=== PATIENT | female | born 1990 | race Caucasian/White ===

== ENCOUNTER → 2019-09-30 09:38 | Outpatient (BNVA) | payer OTHER, SELFPAY | PROVIDERS: Visit Provider Psychiatry & Neurology Psychiatry | DX: Z03.89 Encounter for observation for other suspected diseases and conditions ruled out; F43.10 Post-traumatic stress disorder, unspecified; F33.1 Major depressive disorder, recurrent, moderate; F41.0 Panic disorder [episodic paroxysmal anxiety]; F41.1 Generalized anxiety disorder | CPT/HCPCS: 80053; 80061; 84443; 85025 ==

== ENCOUNTER → 2020-01-09 15:25 | Outpatient (BNVA) | payer OTHER, SELFPAY | PROVIDERS: Visit Provider Psychiatry & Neurology Psychiatry | DX: Z03.89 Encounter for observation for other suspected diseases and conditions ruled out (principal); Z79.899 Other long term (current) drug therapy | CPT/HCPCS: 80048; 84443; 85025 ==

== ENCOUNTER 2025-01-15 11:39 | Observation (INO) | payer SELFPAY ==
[2025-01-15] VITALS (8 sets, daily range): BP systolic 99–133; BP diastolic 48–83; PULSE 72–102; RESP 16–18; TEMP 36.8–36.9; O2SAT 92–98
--- OUTSIDE RECORDS SUMMARY | 2025-01-15 11:44 | XMS_ITS | Clinical Summary ---
Author Organization [facility] Address [address] [place]: Epic Prelude ADT [place] [address] Care Team Providers Care Terminologist Name Role Phone Unavailable Primary Care Provider Unavailabl e Allergies Active Allergy Reactions Criticality Noted Date Comments Pertussis Vaccines Unknown 03/26/2013 Unclassified Drug Swelling Low 03/26/2013 Medications No known medications Active Problems Problem Noted Date Diagnosed Date Chronic pain of toe of right foot 11/10/2023 Encounters Date Type Department Care Team Description 11/05/2024 External Device Data [facility] Provider, Abstract 10/30/2024 External Device Data [facility] Provider, Abstract 10/29/2024 External Device Data [facility] Provider, Abstract 10/29/2024 External Device Data [facility] Provider, Abstract 10/22/2024 External Device Data [facility] Provider, Abstract from Last 3 Months Immunizations Immunization Administration Dates Next Due (TENIVAC)(7 YRS UP) TETANUS AND DIPHTHERIA TOXOIDS, ADSORBED (5 LF OF TETANUS TOXOID AND 2 LF OF DIPHTHERIA TOXOID), 0.5ML (PF), IM 03/26/2013 Social History Tobacco Use Types Packs/Day Years Used Date Smoking Tobacco: Every Day Cigarettes Smokeless Tobacco: Never Tobacco Cessation:Ready to Q uit: Not Asked; Counseling Given: Not Answered Alcohol Use Standard Drinks/Week Comments Yes 0 (1 standard drink = 0.6 oz pur e alcohol) occasionally Feeling Safe Answer Date Recorded Are you in a relationship wi th someone who hurts you emotionally and/or physically? 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 Gender Identity Not on file Sexual Orientation Not on file Last Filed Vital Signs Vital Sign Reading Time Taken Comments Blood Pressure 103/71 11/10/2023 4:50 PM CDT Pulse 105 11/10/2023 4:50 PM CDT Temperature 37.1 C (98.7 F) 11/10/2023 4:50 PM CDT Respiratory Rate 12 11/10/2023 4:50 PM CDT Oxygen Saturation 99% 11/10/2023 4:00 PM CDT Inhaled Oxygen Concentration - - Weight 45.6 kg (100 lb 9.6 oz) 11/10/2023 3:53 P M CDT Height 157.5 cm (5' 2 ) 11/10/2023 3:53 PM CDT Body Mass Index 18.4 11/10/2023 3:53 PM CDT Plan of Treatment Health Maintenance Due Date Last Done Comments HEPATITIS B VACCINES (1 of 3 - 19+ 3-dose series) 04/06 HPV/Cotest (21-29) 2011 DTAP/TDAP/TD VACCINES (1 - Tdap) 03/27/2013 03/26/19 14 HPV VACCINES (1 - 3-dose SCDM series) 2017 CERVICAL CANCER SCREENING 2020 HPV/Cotest (30-65) 2020 PAP SMEAR 2020 INFLUENZA VACCINE (#1) 2024
--- NOTE | 2025-01-15 11:57 | W.ED.NAVMDI ---
HPI - Nausea/Vomiting/Diarrhea General: Chief complaint: Nausea/Vomiting/Diarrhea Stated complaint: n/v/f, dehydration Time Seen by Provider: 01/15/25 11:56 History of Present Illness: 34-year-old female presents to the emergency room with complaints of nausea vomiting abdominal cramping no no hematemesis no coffee-ground emesis. No dysuria urgency or frequency no fever sweats or chills said intermittent nausea and vomiting. Previously had has not cholecystectomy. Associated symtoms: Denies chest pain or dysuria Related Data Previous Rx's ?Medication ?Instructions ?Recorded citalopram 20 mg tablet 20 mg PO DAILY 30 days #30 tabs 11/18/21 trazodone 50 mg tablet 50 mg PO .qhs 30 days #30 tabs 11/18/21 Allergies Allergy/AdvReac Type Severity Reaction Status Date / Time ethinyl estradiol (From Allergy NA Verified 11/18/21 08:44 Ortho Tri-Cyclen (28)) norgestimate (From Ortho Allergy NA Verified 11/18/21 08:44 Tri-Cyclen (28)) pertussis vaccine,adsorbed Allergy NA Verified 11/18/21 08:44 Review of Systems Const: Denies: fever(s) or chills Card: Denies: chest pain Resp: Denies: dyspnea GI: Denies: abdominal pain : Denies: dysuria, urinary frequency or urinary urgency Musc: Denies: neck pain or back pain Skin/Breast: Denies: rash PFS ED PFSH: Medical History (Updated 12/09/22 @ 08:52 by Shama Riley LPN) Encounter for observation for other suspected diseases and conditions ruled out Generalized anxiety disorder Panic MDD (major depressive disorder) PTSD (post-traumatic stress disorder) Encounter for observation for other suspected diseases and conditions ruled out Social History (Updated 06/08/20 @ 14:03 by Sienna Nunez LPN) Smoking and tobacco/nicotine status: current every day tobacco/nicotine user cigarettes Packs smoked per day: 0.5 Years cigarettes smoked: 15 Quit status (tobacco/nicotine): considering quitting Second hand smoke exposure: Yes Alcohol intake: current Substance/Drug Use: unknown Current gender identity: Female Physical Exam Const: COMMON NORMALS: no acute distress GENERAL APPEARANCE: cooperative and comfortable ORIENTATION/CONSCIOUSNESS: Yes awake, Yes oriented to person, Yes oriented to place and Yes oriented to time HENMT: COMMON NORMALS: normocephalic, atraumatic and hearing grossly normal bilaterally HEAD & SCALP: normocephalic and atraumatic Resp: COMMON NORMALS: normal respiratory effort, No retractions, No use of accessory muscles and clear to auscultation bilaterally AUSCULTATION: clear to auscultation bilaterally Cardio: COMMON NORMALS: regular rate, regular rhythm and No murmurs present (Cardio) RATE: regular rate RHYTHM: regular rhythm GI: COMMON NORMALS: Soft to palpation and No hepatosplenomegaly present AUSCULTATION: Yes normoactive bowel sounds PALPATION: Yes Soft to palpation, No Tenderness to palpation present (GI), No Guarding due to palpation present (GI) and Yes No hepatosplenomegaly present Extremity: COMMON NORMALS: normal to inspection, capillary refill normal, no clubbing, cyanosis or edema, no calf tenderness and no pedal edema Neuro: SENSORIUM/ORIENTATION: Yes oriented to person, Yes oriented to place and Yes oriented to time Skin: COMMON NORMALS: no rashes or lesions noted GENERAL SKIN EXAM: no rashes or lesions noted Course Vital Signs: Vital signs: Vital Signs Temperature 98.5 F 01/15/25 11:47 Pulse Rate 99 01/15/25 11:47 Respiratory Rate 18 01/15/25 11:47 Blood Pressure 125/79 01/15/25 11:47 Pulse Oximetry 98 01/15/25 11:47 Oxygen Delivery Me thod Room Air 01/15/25 11:47 Discharge Plan Discharge Condition: Stable Prescriptions: No Action citalopram 20 mg tablet 20 mg PO DAILY 30 Days Qty: 30 3RF trazodone 50 mg tablet 50 mg PO .qhs 30 Days Qty: 30 3RF Print Language: Macedonian Coding Level of Care Code ED Blood Bank Attendant for Lien Bolivar
[2025-01-15 12:26] LABS: Hematocrit 38.8 % (36-47); Hemoglobin 13.20 g/dL (11.27-16.99); Mean Corpuscular HGB Conc 34.0 g/dL (30-55); Mean Corpuscular Hemoglobin 29.6 pg (27-33); Mean Corpuscular Volume 87.0 fl (85-98); Nucleated Red Blood Cells % 0 %; Platelet Count 276 10^3/cmm (157-399); Red Blood Count 4.46 10^6/uL (3.85-5.65); White Blood Count 9.30 10^3/uL (3.29-11.43)
[2025-01-15] MEDS: ondansetron 2 mg/ML SDV 2 mL 4 MG IVP ×2 (12:27→20:11)
[2025-01-15 12:44] LABS: Alanine Aminotransferase 10 U/L (0-33); Albumin Level 4.1 g/dL (3.5-5.2); Alkaline Phosphatase 99 U/L (35-105); Anion Gap 20.0 (5-19); Aspartate Amino Transferase 15 U/L (0-32); Blood Urea Nitrogen 4 mg/dL (6-20); Calcium 8.9 mg/dL (8.5-10.5); Carbon Dioxide 27 mmol/L (22-29); Chloride 89 mmol/L (98-107); Globulin 3.3 g/dL (1.3-4.6); Glucose 95 mg/dL (65-115); Lipase 11 U/L (13-60); Osmolality Calculated 275 mOsm/kg (285-295); Sodium 134 mmol/L (136-145); Total Protein 7.4 g/dL (6.6-8.7)
[2025-01-15 12:48] LABS: Potassium 2.0 mmol/L (3.5-5.1)
[2025-01-15 12:51] LABS: Add Urine Microscopic? YES
[2025-01-15 12:55] LABS: HCG, Serum Qual Negative (Negative)
[2025-01-15 13:17] LABS: Magnesium 1.8 mg/dL (1.7-2.3)
[2025-01-15] MEDS: lidocaine 1% 5 ML in potassium chloride premix 100 ML 52.5 ML IV ×2 (13:30→15:35)
--- NOTE | 2025-01-15 13:41 | CT_ITS ---
WS: [id number] CT ABDOMEN AND PELVIS NONCONTRAST HISTORY: flank pain TECHNIQUE: Imaging performed through the abdomen and pelvis. Coronal and sagittal reformats are submitted. All CT scans at [facility] use at least one of these dose optimization techniques: automated exposure control; mA and/or kV adjustment per patient size (includes targeted exams where dose is matched to clinical indication); or iterative reconstruction. DLP: 319.93 mGy.cm COMPARISON: 08/20/2011. Lower thorax: Significant breathing motion artifact at the lung bases. No large consolidations. Heart size is normal. Liver: Normal size liver. Focal hepatic steatosis along the falciform ligament. Gallbladder: Prior cholecystectomy. Pancreas: Normal size and attenuation. Normal pancreatic duct. No pancreatitis or mass. Spleen: Normal. Adrenal glands: Normal. No mass. Right kidney: Normal size kidney with no mass or hydronephrosis. Left kidney: Normal size kidney with no mass or hydronephrosis. Aorta: Normal abdominal aorta, no aneurysm or atherosclerosis. Small central mesenteric lymph nodes. No adenopathy. GI tract: No obstruction. Normal appendix. Abdominal wall: Small umbilical hernia contains fat only. Pelvis: Urinary bladder is not distended. RIGHT adnexal low-attenuation mass measures 4.1 x 3.8 cm. This is most likely an ovarian cyst. Uterus is midline. No free fluid in the pelvis. Osseous structures: Unremarkable. CT/CT kidney stone [id number] IMPRESSION: 1. No renal obstruction or ureteral calcifications. 2. Normal appendix. 3. RIGHT ovarian cyst 4.1 x 3.8 cm. This can be further evaluated by transvagi nal pelvic ultrasound. 4. No free fluid or adenopathy. 5. Prior cholecystectomy.
--- NOTE | 2025-01-15 15:28 | PM.HP ---
Providers/Chief Complaint Admitting Physician: Rickey Harris MD Chief Complaint: n/v/f, dehydration History of Present Illness Jennifer Fatima is a 34 year old female with prior medical history of major depressive disorder, anxiety, PTSD, and cholecystectomy presenting with complaints of N/V/D. Patient reports that ever since the of her first child (2007), she has had complications with electrolyte imbalance and dehydration. She had 2 more children after this - 2017. Her current episode started on 01/12/25 and included flu-like symptoms - headache, fever, sweating, chills. She has had nausea and vomiting, abdominal cramping, and parasthesias to all extremities and face. The parasthesias normally alert her to low potassium. She has also had episodes of diarrhea. Denies near-syncope or loss of conciousness. Endorses occasional alcohol use and 1/2 pack cigarettes per day. She came to [facility] ED to be evaluated. 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 She confirms that there are no home meds to note. She only takes tylenol. In the ED, BP 125/79, HR 99, RR 18, T98.5, O2 98. WBC 9.30, Hgb 13.2, PLT 276. Sodium 134, potassium 2.0, BUN 4, creatinine 0.5, lipase 11. Magnesium 1.8. Urinalysis dark yellow, cloudy, WBC 10?15, urine bacteria 2+, 1+ mucus. Ceftriaxone started in the ED. Review of Systems General: Reports: 10 or more systems reviewed and unremarkable except in HPI and below Medications/Allergies Home Medications ?Medication ?Instructions ?Recorded ?Confirmed ?Last Taken ?Type No Known Home Medications 01/15/25 01/15/25 Unknown History Allergies Allergy/AdvReac Type Severity Reaction Status Date / Time ethinyl estradiol (From Allergy NA Verified 11/18/21 08:44 Ortho Tri-Cyclen (28)) norgestimate (From Ortho Allergy NA Verified 11/18/21 08:44 Tri-Cyclen (28)) pertussis vaccine,adsorbed Allergy NA Verified 11/18/21 08:44 PFSH Acute PFSH: Medical History (Updated 01/15/25 @ 15:33 by She Henao, OUTDOOR GUIDE, VEHICLE MAINTENANCE TECHNICIAN) Encounter for observation for other suspected diseases and conditions ruled out Generalized anxiety disorder Panic MDD (major depressive disorder) PTSD (post-traumatic stress disorder) Encounter for observation for other suspected diseases and conditions ruled out Social History (Updated 06/08/20 @ 14:03 by Sienna Nunez LPN) Smoking and tobacco/nicotine status: current every day tobacco/nicotine user cigarettes Packs smoked per day: 0.5 Years cigarettes smoked: 15 Quit status (tobacco/nicotine): considering quitting Second hand smoke exposure: Yes Alcohol intake: current Substance/Drug Use: unknown Current gender identity: Female Vitals/I&O/Wt Last Vital Signs Temp 98.4 F 01/15/25 15:00 Pulse 90 01/15/25 15:21 Resp 18 01/15/25 15:00 BP 116/78 01/15/25 15:21 Pulse Ox 97 01/15/25 15:21 O2 Del Method Room Air 01/15/25 15:00 Weight last 48 hrs Weight 51.256 kg Physical Exam Const: COMMON NORMALS: patient oriented x3 HENMT: COMMON NORMALS: normocephalic and atraumatic Eye: COMMON NORMALS: Equal, round and reactive pupils present Neck/C-Spine: COMMON NORMALS: full ROM and no lymphadenopathy Lymph: LYMPHATIC: no lymphadenopathy noted Chest: COMMONS NORMALS: normal inspection of the chest Resp: COMMON NORMALS: normal respiratory effort Cardio: COMMON NORMALS: no JVD, regular rate and regular rhythm GI: COMMON NORMALS: Normal to inspection, nondistended, normoactive bowel sounds present Neuro: COMMON NORMALS: patient oriented x3 and moves all extremities Psych: COMMON NORMALS: mental status grossly normal, Normal thought process present and cooperative Skin: COMMON NORMALS: no rashes or lesions noted Data 01/15/25 12:15 01/15/25 15:37 A&P Assessment and plan 1. Hypokalemia: K+ 2.0, replete Magnesium WNL at 1.8 Telemetry EKG Patient placed in observation status 2. Dehydration: BP 125/79, HR 99 With electrolyte abnormality, hypokalemic at 2.0 Creatinine 0.5, BUN 4 Clear liquid diet I&O, daily weights Replete with fluids -lactated Ringer's continuous Vitamins Telemetry CMP monitoring Bedrest for now, fall risk precautions 3. UTI (urinary tract infection): Urinalysis with reflex to urine culture; dark yellow, cloudy, WBC 10?15, urine bacteria 2+, 1+ mucus I&O Avoid nephrotoxic agents Rocephin Florastor CT abdomen pelvis performed CT kidney stone imaging pending 4. Nausea, vomiting, and diarrhea: Antiemetics Clear liquid diet 5. MDD (major depressive disorder): With anxiety and PTSD-severe trauma Continue home citalopram Has been patient of [facility] health, 2022 6. Nicotine dependence: Cessation education Nicotine patch offered PDMP PDMP Reviewed: Not Reviewed Attestations Medical Necessity Statement*: Continued hospitalization expected to last less than two midnights secondary to dehydration and electrolyte imbalance correction. Diagnoses Hypokalemia E87.6 Dehydration E86.0 UTI (urinary tract infection) N39.0 Nausea, vomiting, and diarrhea R11.2; R19.7 MDD (major depressive disorder) F32.9 Nicotine dependence F17.200
[2025-01-15] MEDS: cefTRIAXone 1,000 mg SDV 1000 MG IVP (15:35)
[2025-01-15 16:05] LABS: Blood Urea Nitrogen 4 mg/dL (6-20); Calcium 8.0 mg/dL (8.5-10.5); Carbon Dioxide 26 mmol/L (22-29); Chloride 94 mmol/L (98-107); Ferritin 280 ng/mL (15-150); Glucose 87 mg/dL (65-115); Osmolality Calculated 276 mOsm/kg (285-295); Sodium 135 mmol/L (136-145)
[2025-01-15 16:13] LABS: Anion Gap 17.5 (5-19)
[2025-01-15 16:16] LABS: Potassium 2.5 mmol/L (3.5-5.1)
[2025-01-15 18:51] LABS: Potassium 2.3 mmol/L (3.5-5.1)
[2025-01-15] MEDS: potassium chloride oral liq 20 mEq/15 mL UDC 40 MEQ PO (19:53)
[2025-01-15] MEDS: magnesium sulfate premix 2 GM/50 ML PIGGYBACK IV (19:53)
[2025-01-15] MEDS: potassium chloride premix 100 ML 50 MEQ IV ×2 (19:53→21:59)
[2025-01-16] VITALS (8 sets, daily range): BP systolic 104–128; BP diastolic 68–81; PULSE 66–80; RESP 16–17; TEMP 36.2–36.7; O2SAT 98–100
[2025-01-16 01:40] LABS: Magnesium 2.3 mg/dL (1.7-2.3); Potassium 3.2 mmol/L (3.5-5.1)
[2025-01-16] MEDS: ondansetron 2 mg/ML SDV 2 mL 4 MG IVP (02:14)
[2025-01-16] MEDS: potassium chloride oral liq 20 mEq/15 mL UDC 40 MEQ PO (02:14)
--- OUTSIDE RECORDS SUMMARY | 2025-01-16 05:43 | XMS_ITS | Clinical Summary ---
Author Organization [facility] Address [address] 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
[2025-01-16] MEDS: multivitamin therapeutic Tablet 1 TAB PO (08:23)
[2025-01-16 09:12] LABS: Hematocrit 36.9 % (36-47); Hemoglobin 12.30 g/dL (11.27-16.99); Mean Corpuscular HGB Conc 33.3 g/dL (30-55); Mean Corpuscular Hemoglobin 30.5 pg (27-33); Mean Corpuscular Volume 91.6 fl (85-98); Nucleated Red Blood Cells % 0 %; Platelet Count 270 10^3/cmm (157-399); Red Blood Count 4.03 10^6/uL (3.85-5.65); White Blood Count 4.31 10^3/uL (3.29-11.43)
--- NOTE | 2025-01-16 09:15 | P.DS_ITS ---
Discharge Providers Date of Admission: 01/15/25 14:42 Date of Discharge: January 16, 2025 Attending Provider at Admission: Rickey Harris MD Attending Provider at Discharge: Dulce Pena NP Diagnoses at Discharge Discharge Diagnosis 1. Hypokalemia: 2. Dehydration: 3. UTI (urinary tract infection): 4. Nausea, vomiting, and diarrhea: 5. Moderate episode of recurrent major depressive disorder: 6. Nicotine dependence: Reason for Visit Reason for Visit: n/v/f, dehydration Brief History: Admission: Jennifer Fatima is a 34 year old female with prior medical history of major depressive disorder, anxiety, PTSD, and cholecystectomy presenting with complaints of N/V/D. Patient reports that ever since the of her first child (2007), she has had complications with electrolyte imbalance and dehydration. She had 2 more children after this - 2017. Her current episode started on 01/12/25 and included flu-like symptoms - headache, fever, sweating, chills. She has had nausea and vomiting, abdominal cramping, and parasthesias to all extremities and face. The parasthesias normally alert her to low potassium. She has also had episodes of diarrhea. Denies near-syncope or loss of conciousness. Endorses occasional alcohol use and 1/2 pack cigarettes per day. She came to [facility] ED to be evaluated. 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 She confirms that there are no home meds to note. She only takes tylenol. In the ED, BP 125/79, HR 99, RR 18, T98.5, O2 98. WBC 9.30, Hgb 13.2, PLT 276. Sodium 134, potassium 2.0, BUN 4, creatinine 0.5, lipase 11. Magnesium 1.8. Urinalysis dark yellow, cloudy, WBC 10?15, urine bacteria 2+, 1+ mucus. Ceftriaxone started in the ED. Hospital Course Hospital Course Interventions: 1. Hypokalemia: K+ 2.0, replete Magnesium WNL at 1.8 Telemetry EKG Patient placed in observation status 2. Dehydration: BP 125/79, HR 99 With electrolyte abnormality, hypokalemic at 2.0 Creatinine 0.5, BUN 4 Clear liquid diet I&O, daily weights Replete with fluids -lactated Ringer's continuous Vitamins Telemetry CMP monitoring Bedrest for now, fall risk precautions 3. UTI (urinary tract infection): Urinalysis with reflex to urine culture; dark yellow, cloudy, WBC 10?15, urine bacteria 2+, 1+ mucus I&O Avoid nephrotoxic agents Rocephin Florastor CT abdomen pelvis performed CT kidney stone imaging pending 4. Nausea, vomiting, and diarrhea: Antiemetics Clear liquid diet 5. MDD (major depressive disorder): With anxiety and PTSD-severe trauma Continue home citalopram Has been patient of [facility] health, 2022 6. Nicotine dependence: Cessation education Nicotine patch offered Patient doing very well overall, was able to tolerate diet, nausea and vomiting subsided. CT abdomen pelvis with no renal obstruction or ureteral calcifications, normal appendix, patient does have a right ovarian cyst which can be further evaluated outpatient with gynecology, she had no free fluid or adenopathy, and has prior cholecystectomy. Advised patient to continue good oral hydration with electrolyte supplementation. Discharging potassium 3.6. She is prescribed continued potassium and Zofran as needed. Patient is advised to follow-up with her primary care provider in 1 to 3 days, gynecology at the next available appointment. All questions and concerns addressed with patient prior to discharge. Physical Exam Const: COMMON NORMALS: patient oriented x3 HENMT: COMMON NORMALS: normocephalic and atraumatic HEAD & SCALP: normocephalic and atraumatic Eye: COMMON NORMALS: Equal, round and reactive pupils present PUPIL: Yes Equal, round and reactive pupils present Neck/C-Spine: COMMON NORMALS: full ROM, no lymphadenopathy and no JVD Lymph: LYMPHATIC: no lymphadenopathy noted Chest: COMMONS NORMALS: normal inspection of the chest Resp: COMMON NORMALS: normal respiratory effort Cardio: COMMON NORMALS: no JVD, regular rate and regular rhythm RATE: regular rate RHYTHM: regular rhythm GI: COMMON NORMALS: Normal to inspection, nondistended, normoactive bowel sounds present Neuro: COMMON NORMALS: patient oriented x3 and moves all extremities Psych: COMMON NORMALS: mental status grossly normal, Normal thought process present and cooperative THOUGHT PROCESS: Normal thought process present Skin: COMMON NORMALS: no rashes or lesions noted GENERAL SKIN EXAM: no rashes or lesions noted Discharge Data Studies Completed and Pending Completed Studies During Hospitalization Category Date Time Status CT kidney stone [id number] Stat Cat Scan 01/15/25 13:41 Completed Pending at discharge Category Date Time Status CMP [Comprehensive Metabolic Panel] Timed Lab 01/16/25 08:57 Received Complete Blood Count w/Auto AM LABS Lab 01/16/25 08:57 Received Thyroid Stimulating Hormone AM LABS Lab 01/16/25 08:57 Received Urine Culture Stat Lab 01/15/25 12:04 Received Radiology Impressions Abdomen/Pelvis CT 01/15/25 13:41 IMPRESSION: 1. No renal obstruction or ureteral calcifications. 2. Normal appendix. 3. RIGHT ovarian cyst 4.1 x 3.8 cm. This can be further evaluated by transvaginal pelvic ultrasound. 4. No free fluid or adenopathy. 5. Prior cholecystectomy. Laboratory Results WBC 9.30 10^3/uL (3.29-11.43) 01/15/25 12:15 RBC 4.46 10^6/uL (3.85-5.65) 01/15/25 12:15 Hgb 13.20 g/dL (11.27-16.99) 01/15/25 12:15 Hct 38.8 % (36-47) 01/15/25 12:15 MCV 87.0 fl (85-98) 01/15/25 12:15 MCH 29.6 pg (27-33) 01/15/25 12:15 MCHC 34.0 g/dL (30-55) 01/15/25 12:15 RDW 16.9 % (12.1-15.1) H 01/15/25 12:15 Plt Count 276 10^3/cmm (157-399) 01/15/25 12:15 MPV 9.5 fL (7.4-10.4) 01/15/25 12:15 Neut % (Auto) 75.8 % 01/15/25 12:15 Lymph % (Auto) 14.4 % 01/15/25 12:15 Cherry % (Auto) 9.1 % 01/15/25 12:15 Eos % (Auto) 0.1 % 01/15/25 12:15 Baso % (Auto) 0.3 % 01/15/25 12:15 Neut # (Auto) 7.04 10^3/uL (1.8-7.7) 01/15/25 12:15 Lymph # (Auto) 1.3 10^3/uL (0.8-4.8) 01/15/25 12:15 Cherry # (Auto) 0.9 10^3/uL (0.2-0.9) 01/15/25 12:15 Eos # (Auto) 0.0 10^3/uL (0.0-0.8) 01/15/25 12:15 Baso # (Auto) 0.0 10^3/uL (0.0-0.1) 01/15/25 12:15 Nucleated RBC % (auto) 0 % 01/15/25 12:15 Nucleated RBCs # 0.0 /100WBC 01/15/25 12:15 Sodium 135 mmol/L (136-145) L 01/15/25 15:37 Potassium 3.2 mmol/L (3.5-5.1) L 01/16/25 01:01 Chloride 94 mmol/L (98-107) L 01/15/25 15:37 Carbon Dioxide 26 mmol/L (22-29) 01/15/25 15:37 Anion Gap 17.5 (5-19) 01/15/25 15:37 BUN 4 mg/dL (6-20) L 01/15/25 15:37 Creatinine 0.5 mg/dL (0.5-0.9) 01/15/25 15:37 GFR Calculation 141.2 mL/min (90-130) H 01/15/25 15:37 Glucose 87 mg/dL (65-115) 01/15/25 15:37 Calculated Osmolality 276 mOsm/kg (285-295) L 01/15/25 15:37 Calcium 8.0 mg/dL (8.5-10.5) L 01/15/25 15:37 Phosphorus 1.9 mg/dL (2.5-4.5) L 01/15/25 15:37 Magnesium 2.3 mg/dL (1.7-2.3) 01/16/25 01:01 Ferritin 280 ng/mL (15-150) H 01/15/25 15:37 Total Bilirubin 0.7 mg/dL (0.15-1.2) 01/15/25 12:15 AST 15 U/L (0-32) 01/15/25 12:15 ALT 10 U/L (0-33) 01/15/25 12:15 Alkaline Phosphatase 99 U/L (35-105) 01/15/25 12:15 Total Protein 7.4 g/dL (6.6-8.7) 01/15/25 12:15 Albumin 4.1 g/dL (3.5-5.2) 01/15/25 12:15 Globulin 3.3 g/dL (1.3-4.6) 01/15/25 12:15 Lipase 11 U/L (13-60) L 01/15/25 12:15 HCG, Qual Negative (Negative) 01/15/25 12:15 Urine Color Dark yellow (Yellow) A 01/15/25 12:04 Urine Appearance Cloudy (CLEAR) A 01/15/25 12:04 Urine pH (5-7) 01/15/25 12:04 Ur Specific [place] Not Reportable 01/15/25 12:04 Urine Protein Not Reportable 01/15/25 12:04 Urine Glucose (UA) Not Reportable 01/15/25 12:04 Urine Ketones Not Reportable 01/15/25 12:04 Urine Blood Not Reportable 01/15/25 12:04 Urine Nitrate Not Reportable 01/15/25 12:04 Urine Bilirubin Not Reportable 01/15/25 12:04 Urine Urobilinogen Not Reportable 01/15/25 12:04 Ur Leukocyte Esterase Not Reportable 01/15/25 12:04 Urine RBC 0-4 /hpf (0-2) H 01/15/25 12:04 Urine WBC 10-15 /hpf (0-5) H 01/15/25 12:04 Ur Squamous Epith Cells 5-10 /hpf (0-5) H 01/15/25 12:04 Amorphous Sediment Not Reportable 01/15/25 12:04 Urine Bacteria 2+ /hpf (NONE) H 01/15/25 12:04 Urine Mucus 1+ /hpf 01/15/25 12:04 Vitals Last Vital Signs Temp 97.8 F 01/16/25 08:25 Pulse 77 01/16/25 08:25 Resp 17 01/16/25 08:25 BP 104/69 01/16/25 08:25 Pulse Ox 99 01/16/25 08:25 O2 Del Method Room Air 01/16/25 04:00 Discharge Plan Discharge Patient Disposition: Home Condition: Stable Prescriptions: New pantoprazole 40 mg Tablet,Delayed Release (Dr/Ec) 40 mg PO DAILY 30 Days Qty: 30 0RF thiamine mononitrate (vit B1) [Vitamin B-1 (mononitrate)] 100 mg Tablet 50 mg PO DAILY 30 Days Qty: 30 0RF ondansetron 4 mg tablet,disintegrating 4 mg PO Q8H PRN (Reason: nausea and vomiting) 5 Days Qty: 20 0RF potassium chloride 20 mEq/15 mL liquid 10 meq PO DAILY 30 Days Qty: 1200 0RF cefuroxime axetil 500 mg tablet 500 mg PO BID 7 Days Qty: 14 0RF Discharge Order = DC NOW: Discharge Order (Routine); Ordered 01/16/25 Ordered By: Dulce Pena Patient Instructions: Cefuroxime (By mouth), Potassium Chloride (By mouth), Thiamine (By mouth), Hypokalemia (GEN), Opioid Safety, Patient Portal & Taras Instructions Activity Restrictions/Additional Instructions: Please get established with a primary care provider of your choice. Discharge Attestations Time Spent in Discharge Care*: greater than 30 min Quality Metrics Clinical Quality Measures [ No reported AMI, CVA or VTE this stay] Coding Level of Care Code 22229 Diagnoses Hypokalemia E87.6 Dehydration E86.0 UTI (urinary tract infection) N39.0 Nausea, vomiting, and diarrhea R11.2; R19.7 Moderate episode of recurrent major depressive disorder F33.1 Active/Remission status: currently active Major depression episode severity: moderate Major depression recurrence: recurrent Nicotine dependence F17.200
[2025-01-16 09:35] LABS: Alanine Aminotransferase 8 U/L (0-33); Albumin Level 3.2 g/dL (3.5-5.2); Alkaline Phosphatase 76 U/L (35-105); Anion Gap 13.0 (5-19); Aspartate Amino Transferase 15 U/L (0-32); Blood Urea Nitrogen 2 mg/dL (6-20); Calcium 7.5 mg/dL (8.5-10.5); Carbon Dioxide 23 mmol/L (22-29); Chloride 104 mmol/L (98-107); Globulin 2.5 g/dL (1.3-4.6); Glucose 107 mg/dL (65-115); Osmolality Calculated 281 mOsm/kg (285-295); Potassium 3.0 mmol/L (3.5-5.1); Sodium 137 mmol/L (136-145); Total Protein 5.7 g/dL (6.6-8.7)
[2025-01-16 09:43] LABS: Thyroid Stimulating Hormone 1.18 uIU/mL (0.27-4.20)
--- NOTE | 2025-01-16 10:03 | PC.CHAP ---
Pastoral Care Encounter/Spiritual Assessment Type of Contact [] Declined ironworker apprentice shop visit [] Patient/Family/Request visit [] Outpatient visit [] Follow-up visit [] Physician referral [] Code/Alert [x] Routine visit [] Staff referral [] Actively dying [] Patient sleeping [] Family support [] [] Out of room [] Palliative care [] [] Receiving care in room [] Pre-surgical visit [] Trauma [] Long length of stay [] ICU visit [] Other: Relational/Emotional Strength [x] Patient feels connected with others/family/visitors/staff [] Distress [] Loneliness/isolation [] Abandonment Spirituality of Patient [x] Person of Iliana [] Attends Zoroastrian of their [place]iana [x] Believes in Prayer [] Reads Bible or Cheondoism materials [] There are Spiritual issues to be addressed Media Theorist And Author Of Interventions [x] Prayer [x] Active listening [] Non-anxious presence [x] Spiritual/emotional support [] Crisis/trauma care [] Spiritual counseling [] Bereavement support [] Provided bereavement packet [] Provided Bible/devotional materials [] Provided toy/stuffed animal, coloring book to patient or family member [] Provided Communion [] Anointing/[place] [] Salvation [x] Completed spiritual assessment [] Other: Impact on Illness or Injury [] Angry [] Fearful [] Anxious [] Often cries [] Exhaustion [] Unable to work [] Unable to attend islam [] Unable to walk/stand [] Unable to read [] Unable to drive [] Unable to eat/drink [] Unable to sleep [] Unable to be with family [] Patient intubated [] Other: Summary Time spent with patient 5 min
[2025-01-16] MEDS: lidocaine 1% 5 ML in potassium chloride premix 100 ML 52.5 ML IV ×3 (10:35→14:55)
--- NOTE | 2025-01-16 10:48 | PC.NURSE ---
Patient does not have a primary care provider and requested that we not set one up for her.
[2025-01-16] MEDS: cefTRIAXone 1,000 mg SDV 1000 MG IVP (17:00)
[2025-01-16 18:53] LABS: Potassium 3.6 mmol/L (3.5-5.1)
== END 2025-01-16 19:01 | disposition home or self-care (01) ==
LOC: ER 12:00 → MEDSURG 17:03
PROVIDERS: Clinical Nurse Specialist Acute Care; Family Medicine; Admitting Provider Family Medicine; Emergency Provider Family Medicine; Visit Provider Registered Nurse
DX: R11.2 Nausea with vomiting, unspecified (principal); R19.7 Diarrhea, unspecified; E87.6 Hypokalemia; E86.0 Dehydration; N39.0 Urinary tract infection, site not specified; F33.1 Major depressive disorder, recurrent, moderate; F17.200 Nicotine dependence, unspecified, uncomplicated; F41.9 Anxiety disorder, unspecified; F43.10 Post-traumatic stress disorder, unspecified; F17.210 Nicotine dependence, cigarettes, uncomplicated
CPT/HCPCS: 36415; 74176; 80048; 80053; 81001; 82728; 83690; 83735; 84100; 84132; 84443; 84703; 85025; 87077; 87086; 87186; G0378; J0696; J2405; J3475; J3480; J7030; J9999

== ENCOUNTER 2025-03-03 12:26 | Emergency (ER) | payer SELFPAY ==
--- OUTSIDE RECORDS SUMMARY | 2025-03-03 12:31 | XMS_ITS | Clinical Summary ---
Author Organization [facility] Address [address] Lisa: Epic Prelude ADT [place] [id number] Care Team Providers Care Protective Services Officer Name Role Phone Unavailable Primary Care Provider Unavailabl e Allergies Active Allergy Reactions Criticality Noted Date Comments Pertussis Vaccines Unknown 03/26/2013 Unclassified Drug Swelling Low 03/26/2013 Medications No known medications Active Problems Problem Noted Date Diagnosed Date Chronic pain of toe of right foot 11/10/2023 Immunizations Immunization Administration Dates Next Due ([facility])(7 YRS UP) TETANUS AND DIPHTHERIA TOXOIDS, ADSORBED [...] on file Legal Sex Female 1:01 PM [employer]ODUCTION WO[employer]FT[employer] Gender Identity Not on file Sexual Orientation [...] VACCINES (1 - Tdap) 03/27/2013 03/26/19 14 CERVICAL CANCER SCREENING 2020 HPV/Cotest (30-65) 2020 PAP SMEAR 2020 INFLUENZA VACCINE (#1) 2024 HPV VACCINES (No Doses Required) Completed
--- NOTE | 2025-03-03 12:32 | XR_ITS ---
WS: [id number] Portable AP upright chest, 03/03/2025 Clinical Data: sob Comparison: Portable chest, 05/27/2016 Findings: No nodules, masses or effusions are seen. The heart is normal. The pulmonary vascularity is not increased. No pneumonia or pneumothorax is seen. The diaphragms are flattened. There are cholecystectomy clips in the right upper quadrant. XR/XR chest 1V portable [id number] Impression: Hyperinflation.
[2025-03-03 12:34] VITALS: BP 134/91; PULSE 95; TEMP 36.3; O2SAT 99
--- NOTE | 2025-03-03 12:39 | ECG_ITS ---
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 Measurements Intervals [place] Rate: 94 P: 73 NV: 119 QRS: 63 QRSD: 78 T: 46 QT: 371 QTc: 464 Interpretive Statements SINUS RHYTHM WITH SHORT NV INTERVAL MODERATE ST DEPRESSION [0.05+ mV ST DEPRESSION] No previous ECG available for comparison Electronically Signed On 03-06-2025 16:27:51 PHONE BANKER by Sid Atkinson M.D. [email or web address]
[2025-03-03 13:24] LABS: Hematocrit 42.5 % (36-47); Hemoglobin 14.40 g/dL (11.27-16.99); Mean Corpuscular HGB Conc 33.9 g/dL (30-55); Mean Corpuscular Hemoglobin 30.5 pg (27-33); Mean Corpuscular Volume 90.0 fl (85-98); Nucleated Red Blood Cells % 0 %; Platelet Count 426 10^3/cmm (157-399); Red Blood Count 4.72 10^6/uL (3.85-5.65); White Blood Count 11.22 10^3/uL (3.29-11.43)
[2025-03-03 13:38] LABS: HCG, Serum Qual Negative (Negative)
[2025-03-03 13:47] LABS: Alanine Aminotransferase 15 U/L (0-33); Albumin Level 4.9 g/dL (3.5-5.2); Alkaline Phosphatase 108 U/L (35-105); Anion Gap 29.3 (5-19); Aspartate Amino Transferase 31 U/L (0-32); Blood Urea Nitrogen 5 mg/dL (6-20); Calcium 9.1 mg/dL (8.5-10.5); Carbon Dioxide 22 mmol/L (22-29); Chloride 88 mmol/L (98-107); Globulin 2.8 g/dL (1.3-4.6); Glucose 146 mg/dL (65-115); NT Pro B Type Natriuretic Pept < 36 pg/mL (0-125); Osmolality Calculated 282 mOsm/kg (285-295); Potassium 3.3 mmol/L (3.5-5.1); Sodium 136 mmol/L (136-145); Total Protein 7.7 g/dL (6.6-8.7)
--- NOTE | 2025-03-03 13:51 | ED_ITS ---
HPI - General Adult 2 General: Chief complaint: Shortness of Breath/Dyspnea Stated complaint: SOB Time Seen by Provider: 03/03/25 13:38 Source: patient Mode of arrival: ambulatory Limitations: no limitations History of Present Illness: Patient is a 34-year-old female presents to ED today with a complaint of an episode of chest pain and shortness of breath and carpal spasms earlier today. Patient feels like it could have been related to low potassium as she does have a history of chronic hypokalemia. She has had to be admitted to the hospital before due to her potassium being 2.0. She does take oral potassium daily. Patient states upon arrival to the emergency department all of her symptoms have resolved. She has no physical complaints at time of my examination. Onset (ago): hour(s) Location: chest, left, right and upper extremity Radiation: non-radiation Severity: moderate Quality: other (cramping) Pain Consistency: now resolved Relieving factors: none Exacerbating factors: none Associated symptoms: Reports no associated symptoms, chest pain (resolved) and dyspnea (resolved); Deny headache(s), malaise, nausea, rash, palpitations, syncope or vomiting Treatments prior to arrival: none Related Data Previous Rx's ?Medication ?Instructions ?Recorded nitrofurantoin 100 mg PO BID 7 days #14 cap s 03/03/25 monohydrate/macrocrystals 100 mg capsule (Macrobid) Allergies Allergy/AdvReac Type Severity Reaction Status Date / Time ethinyl estradiol (From Allergy NA Verified 03/03/25 12:44 Ortho Tri-Cyclen (28)) norgestimate (From Ortho Allergy NA Verified 03/03/25 12:44 Tri-Cyclen (28)) pertussis vaccine,adsorbed Allergy NA Verified 03/03/25 12:44 Review of Systems 2 Const: Denies: fever(s), chills, body aches, fatigue or malaise Card: Reports: chest pain (resolved); Denies: palpitations, irregular heart rhythm, edema, swelling of feet/ankles, lightheadedness, syncope, pre-syncope, dyspnea on exertion, orthopnea, leg pain with exertion or acrocyanosis Resp: Reports: dyspnea (resolved); Denies: productive cough, non-productive cough, wheezing, pain on inspiration, change in phlegm color or chest congestion GI: Denies: abdominal pain, nausea, vomiting or diarrhea : Denies: flank pain, dysuria or hematuria Musc: Reports: other (carpal spasm-now resolved); Denies: neck pain, back pain, extremity pain, extremity swelling, joint pain, joint swelling or joint redness Skin/Breast: Denies: rash Neuro: Denies: headache(s), numbness in extremities, weakness in extremities, sensory changes or dizziness PFSH ED 2 PFSH: Medical History Encounter for observation for other suspected diseases and conditions ruled out Generalized anxiety disorder Panic MDD (major depressive disorder) PTSD (post-traumatic stress disorder) Encounter for observation for other suspected diseases and conditions ruled out Social History Smoking and tobacco/nicotine status: current every day tobacco/nicotine user cigarettes Packs smoked per day: 0.5 Years cigarettes smoked: 15 Quit status (tobacco/nicotine): considering quitting Second hand smoke exposure: Yes Alcohol intake: current Substance/Drug Use: unknown Current gender identity: Female Physical Exam 2 Const: COMMON NORMALS: no acute distress, average body habitus, patient oriented x3, no limitations, healthy appearing, alert and well nourished G ENERAL APPEARANCE: cooperative ORIENTATION/CONSCIOUSNESS: Yes awake, Yes oriented to person, Yes oriented to place and Yes oriented to time HENMT: COMMON NORMALS: normocephalic and atraumatic HEAD & SCALP: normal to inspection, normocephalic and atraumatic FACE & SINUS: normal facial exam and face symmetric Neck/C-Spine: COMMON NORMALS: full ROM, no lymphadenopathy, supple and no meningeal signs Chest: COMMONS NORMALS: normal inspection of the chest and normal palpation of entire chest wall Resp: COMMON NORMALS: normal respiratory effort and clear to auscultation bilaterally AUSCULTATION: clear to auscultation bilaterally Cardio: COMMON NORMALS: regular rate and regular rhythm RATE: regular rate RHYTHM: regular rhythm GI: COMMON NORMALS: Normal to inspection, nondistended, normoactive bowel sounds present, Soft to palpation, non-tender, No hepatosplenomegaly present and no masses PALPATION: Yes Soft to palpation and Yes No hepatosplenomegaly present : COMMON NORMALS: Yes no CVA tenderness BLADDER/KIDNEY EXAM: Yes no CVA tenderness Back/Pelvis: COMMON NORMALS: no CVA tenderness and thoracic and lumbar spine normal to inspection Extremity: COMMON NORMALS: normal to inspection, full ROM, capillary refill normal, no clubbing, cyanosis or edema, no calf tenderness and no pedal edema GENERAL: Yes normal exam except as noted Neuro: COMMON NORMALS: patient oriented x3, moves all extremities, no focal motor deficits, no sensory deficits noted and gait normal S ENSORIUM/ORIENTATION: Yes alert, Yes oriented to person, Yes oriented to place and Yes oriented to time MENINGEAL SIGNS: Yes no meningeal signs SPEECH: s peech normal GAIT: Yes Normal gait present Skin: COMMON NORMALS: no rashes or lesions noted GENERAL SKIN EXAM: no rashes or lesions noted Course 2 Vital Signs: Vital signs: Vital Signs Temperature 97.3 F L 03/03/25 12:34 Pulse Rate 95 03/03/25 12:34 Blood Pressure 134/91 03/03/25 12:34 Pulse Oximetry 99 03/03/25 12:34 Oxygen Delivery Me thod Room Air 03/03/25 12:34 MDM - General Adult Medical Decision Making Patient is a 34-year-old female here after an episode of chest pain, shortness of breath, and carpal spasms that occurred this morning. Episode lasted approximately 5 minutes. She denies anxiety/hyperventilation although I do suspect this. Patient states when she has had carpal spasms in the past, it has been attributed to hypokalemia. Upon arrival, patient is completely asymptomatic. Her vital signs are normal. EKG performed here is unremarkable. Remainder of workup including CXR, CBC, CMP, UA were performed as well. CBC is unremarkable. Chemistry showing mild hypokalemia 3.3. She was given an oral dose here. Her magnesium is normal. Elevated anion gap with normal bicarb. Nothing to suggest ketoacidosis, lactic acidosis, starvation/dehydration, no alcohol use/ingestion history, etc. She was given IV fluids here. UA suspicious for infection-no symptoms but reportedly does have a history of frequent UTIs. Will culture/place on abx. Return precautions discussed. Otherwise will have her follow up with PCP later this week. Medical Records I reviewed the patient's medical records. Lab Data I reviewed the patient's lab results. 03/03/25 12:10 03/03/25 12:10 Radiology Impressions Chest X-Ray 03/03/25 12:32 Impression: Hyperinflation. Laboratory Results WBC 11.22 10^3/uL (3.29-11.43) 03/03/25 12:10 RBC 4.72 10^6/uL (3.85-5.65) 03/03/25 12:10 Hgb 14.40 g/dL (11.27-16.99) 03/03/25 12:10 Hct 42.5 % (36-47) 03/03/25 12:10 MCV 90.0 fl (85-98) 03/03/25 12:10 MCH 30.5 pg (27-33) 03/03/25 12:10 MCHC 33.9 g/dL (30-55) 03/03/25 12:10 RDW 14.8 % (12.1-15.1) 03/03/25 12:10 Plt Count 426 10^3/cmm (157-399) H 03/03/25 12:10 MPV 10.4 fL (7.4-10.4) 03/03/25 12:10 Neut % (Auto) 42.6 % 03/03/25 12:10 Lymph % (Auto) 49.2 % 03/03/25 12:10 [place] % (Auto) 7.1 % 03/03/25 12:10 Eos % (Auto) 0.4 % 03/03/25 12:10 Baso % (Auto) 0.5 % 03/03/25 12:10 Neut # (Auto) 4.78 10^3/uL (1.8-7.7) 03/03/25 12:10 Lymph # (Auto) 5.5 10^3/uL (0.8-4.8) H 03/03/25 12:10 [place] # (Auto) 0.8 10^3/uL (0.2-0.9) 03/03/25 12:10 Eos # (Auto) 0.0 10^3/uL (0.0-0.8) 03/03/25 12:10 Baso # (Auto) 0.1 10^3/uL (0.0-0.1) 03/03/25 12:10 Nucleated RBC % (auto) 0 % 03/03/25 12:10 Nucleated RBCs # 0.0 /100WBC 03/03/25 12:10 Sodium 136 mmol/L (136-145) 03/03/25 12:10 Potassium 3.3 mmol/L (3.5-5.1) L 03/03/25 12:10 Chloride 88 mmol/L (98-107) L 03/03/25 12:10 Carbon Dioxide 22 mmol/L (22-29) 03/03/25 12:10 Anion Gap 29.3 (5-19) H 03/03/25 12:10 BUN 5 mg/dL (6-20) L 03/03/25 12:10 Creatinine 0.8 mg/dL (0.5-0.9) 03/03/25 12:10 GFR Calculation 82.1 mL/min (90-130) L 03/03/25 12:10 Glucose 146 mg/dL (65-115) H 03/03/25 12:10 Calculated Osmolality 282 mOsm/kg (285-295) L 03/03/25 12:10 Calcium 9.1 mg/dL (8.5-10.5) 03/03/25 12:10 Magnesium 1.8 mg/dL (1.7-2.3) 03/03/25 12:10 Total Bilirubin 1.2 mg/dL (0.15-1.2) 03/03/25 12:10 AST 31 U/L (0-32) 03/03/25 12:10 ALT 15 U/L (0-33) 03/03/25 12:10 Alkaline Phosphatase 108 U/L (35-105) H 03/03/25 12:10 NT-Pro-B Natriuret Pep < 36 pg/mL (0-125) 03/03/25 12:10 Total Protein 7.7 g/dL (6.6-8.7) 03/03/25 12:10 Albumin 4.9 g/dL (3.5-5.2) 03/03/25 12:10 Globulin 2.8 g/dL (1.3-4.6) 03/03/25 12:10 HCG, Qual Negative (Negative) 03/03/25 12:10 Urine Color Yellow (Yellow) 03/03/25 14:10 Urine Appearance Cloudy (CLEAR) A 03/03/25 14:10 Urine pH 7.0 (5-7) 03/03/25 14:10 Ur Specific [place] 1.013 (1.005-1.030) 03/03/25 14:10 Urine Protein 1+ (Negative) A 03/03/25 14:10 Urine Glucose (UA) Negative (Normal) 03/03/25 14:10 Urine Ketones Trace (Negative) 03/03/25 14:10 Urine Blood Negative (Negative) 03/03/25 14:10 Urine Nitrate Positive (Negative) A 03/03/25 14:10 Urine Bilirubin Negative (Negative) 03/03/25 14:10 Urine Urobilinogen 1.0 mg/dL (Negative) 03/03/25 14:10 Ur Leukocyte Esterase 1+ (Negative) A 03/03/25 14:10 Urine RBC 0-2 /hpf (0-2) 03/03/25 14:10 Urine WBC 21-50 /hpf (0-5) H 03/03/25 14:10 Ur Squamous Epith Cells 6-10 /hpf (0-5) 03/03/25 14:10 Amorphous Sediment Not Reportable 03/03/25 14:10 Urine Bacteria 4+ /hpf (NONE) H 03/03/25 14:10 Hyaline Casts 11.16 /lpf 03/03/25 14:10 All radiology interpretation(s) finalized by discharge Discharge Plan Discharge Patient Disposition: Home Clinical Impression: Chronic hypokalemia Acute cystitis Qualifiers: Hematuria presence: without hematuria Qualified Code(s): N30.00 - Acute cystitis without hematuria Condition: Stable Prescriptions: New nitrofurantoin monohyd/m-cryst [Macrobid] 100 mg capsule 100 mg PO BID 7 Days Qty: 14 0RF Rx Instructions: must administer with a meal/food Discharge Orders: Discharge ED (Routine); Ordered 03/03/25 Ordered By: Isi Amaya Patient Instructions: Patient Portal & Taras Instructions Activity Restrictions/Additional Instructions: As we discussed, I would like you to follow-up with primary care in a week or so for re-evaluation. Please fill your antibiotics and start them immediately. We will culture your urine for definitive confirmation of a bladder infection. Potassium today was 3.3. You are given oral potassium here prior to discharge. You can continue your normal potassium dose at home. Print Language: Khmer Coding Level of Care Code ED Ship Steward for Chg Fwd
[2025-03-03] MEDS: potassium chloride oral liq 20 mEq/15 mL UDC 60 MEQ PO (13:59)
[2025-03-03 14:29] LABS: Glucose Urine UA Negative (Normal); Nitrate Urine Positive (Negative); Specific Gravity, Urine 1.013 (1.005-1.030)
[2025-03-03 14:32] LABS: Add Urine Microscopic? YES
[2025-03-03 14:36] LABS: Magnesium 1.8 mg/dL (1.7-2.3)
[2025-03-03 15:26] LABS: UA Slide Review UA Slide Review Perf
[2025-03-03 15:53] VITALS: BP 127/69; PULSE 74; RESP 17; O2SAT 97
[2025-03-03 17:10] LABS: Respiratory Syncytial Virus Ce NEGATIVE (Negative); SARS-CoV-2 PCR NEGATIVE (Negative)
== END 2025-03-03 15:54 | disposition home or self-care (01) ==
PROVIDERS: Emergency Medicine; Emergency Provider Physician Assistant
DX: E87.6 Hypokalemia (principal); N30.00 Acute cystitis without hematuria; F17.210 Nicotine dependence, cigarettes, uncomplicated
CPT/HCPCS: 71045; 80053; 81001; 83735; 83880; 84703; 85025; 87077; 87086; 87186; 87637; 93005; 99285; J7030; J9999